=== PATIENT | female | born 1995 | race African-American/Black ===

== ENCOUNTER 2017-04-22 13:34 | Emergency (ER) | payer OTHER ==
[~2017-04-22] VITALS: Ht 154.9 cm; Wt 108.9 kg
[~2017-04-22 13:34] MED LIST: CIPROFLOXACIN500 M1 PO; DIFLUCAN150 MG PO; IBUPROFEN 600600 M1 PO; NAPROSYN500 MG PO; NOHOMEMEDICATIONS; NORCO 5-325 TA1 EACH PO; ONDANSETRON HCL4 M2 PO
== END 2017-04-22 14:36 | disposition home or self-care (01) ==
LOC: ER 13:34
DX: A56.11 Chlamydial female pelvic inflammatory disease (principal); A54.24 Gonococcal female pelvic inflammatory disease; Z90.49 Acquired absence of other specified parts of digestive tract

== ENCOUNTER 2017-04-27 14:46 | Emergency (ER) | payer OTHER ==
[~2017-04-27] VITALS: Ht 154.9 cm; Wt 108.9 kg
[2017-04-27 15:08] LABS: URINE BILIRUBIN 1+ (Negative); URINE BLOOD TRACE (Negative); URINE CLARITY CLEAR; URINE COLOR YELLOW; URINE GLUCOSE-RANDOM* NEGATIVE (Negative); URINE KETONES TRACE (Negative); URINE LEUKOCYTES NEGATIVE (Negative); URINE NITRITE NEGATIVE (Negative); URINE PROTEIN (DIPSTICK) TRACE (Negative); URINE SPECIFIC GRAVITY 1.025 (1.005-1.035); URINE UROBILINOGEN 0.2 E.U./dl (0.2-1.0)
[2017-04-27 15:11] LABS: ICTOTEST (BILI CONFIRMATORY) Negative (Negative)
== END 2017-04-27 16:18 | disposition home or self-care (01) ==
LOC: ER 14:46
PROVIDERS: Nurse Practitioner Family
DX: N76.0 Acute vaginitis (principal); Z90.49 Acquired absence of other specified parts of digestive tract

== ENCOUNTER 2017-06-01 10:17 | Emergency (ER) | payer OTHER ==
[~2017-06-01] VITALS: Ht 160 cm; Wt 86.2 kg
[2017-06-01] MEDS ORDERED: DIFLUCAN200 MG PO (10:48)
[2017-06-01] MEDS ORDERED: CLEOCIN HCL150 MG PO (10:48)
[2017-06-01] MEDS ORDERED: NAPROSYN500 MG PO (10:49)
== END 2017-06-01 11:42 | disposition home or self-care (01) ==
LOC: ER 10:17
DX: S05.91XA Unspecified injury of right eye and orbit, initial encounter (principal); W22.8XXA Striking against or struck by other objects, initial encounter; Y93.89 Activity, other specified; Y92.89 Other specified places as the place of occurrence of the external cause; Y99.8 Other external cause status

== ENCOUNTER 2017-11-02 07:20 | Emergency (ER) | payer OTHER ==
[~2017-11-02] VITALS: Ht 160 cm; Wt 116.6 kg
[~2017-11-02 07:20] MED LIST changes: +CLEOCIN HCL150 MG PO; +DIFLUCAN200 MG PO
[2017-11-02 07:50] LABS: URINE BILIRUBIN NEGATIVE (Negative); URINE BLOOD 3+ (Negative); URINE CLARITY CLOUDY; URINE COLOR RED; URINE GLUCOSE-RANDOM* NEGATIVE (Negative); URINE KETONES 1+ (Negative); URINE LEUKOCYTES-REFLEX NEGATIVE (Negative); URINE NITRITE-REFLEX NEGATIVE (Negative); URINE PROTEIN (DIPSTICK) 2+ (Negative); URINE SPECIFIC GRAVITY >= 1.030 (1.005-1.035); URINE UROBILINOGEN 0.2 E.U./dl (0.2-1.0)
[2017-11-02] MEDS ORDERED: PROBIOTIC1 EAC1 PO (07:50)
[2017-11-02 08:15] LABS: BACTERIA-REFLEX 1-9 Few /HPF (None Seen); CASTS None Seen /LPF (None Seen); CRYSTALS None Seen /LPF (None Seen); SQUAMOUS 0-3 Few /LPF (0-3); URINE RBC >20 Many /HPF (0-2); URINE WBC-REFLEX None Seen /HPF (0-5)
[2017-11-02 08:57] LABS: HEMATOCRIT 36.8 % (37.0-47.0); HEMOGLOBIN 12.3 gm/dL (12.0-15.0); MCHC 33.3 g/dL (28.0-37.0); MCV 90.1 fL (80.0-100.0); RBC 4.09 mil/uL (4.20-5.00); RDW 14.1 % (10.5-14.5); WBC 6.2 thou/uL (4.0-11.0)
[2017-11-02 09:01] LABS: CALCIUM 8.6 mg/dL (8.5-10.1); CREATININE 0.9 mg/dL (0.6-1.0); POTASSIUM 4.3 mmol/L (3.5-5.1)
[2017-11-02] MEDS ORDERED: ORTHO-NOVUM1 EAC1 PO (10:39)
[2017-11-02 10:55] VITALS: BP 135/83
== END 2017-11-02 10:55 | disposition home or self-care (01) ==
LOC: ER 07:20
PROVIDERS: Student in an Organized Health Care Education/Training Program
DX: N93.8 Other specified abnormal uterine and vaginal bleeding (principal); Z90.49 Acquired absence of other specified parts of digestive tract

== ENCOUNTER 2018-01-21 16:55 | Emergency (ER) | payer OTHER ==
[~2018-01-21] VITALS: Ht 157.5 cm; Wt 117.9 kg
[~2018-01-21 16:55] MED LIST changes: +ORTHO-NOVUM1 EAC1 PO; +PROBIOTIC1 EAC1 PO
[2018-01-21] MEDS ORDERED: VOLTAREN GEL 1100 G2 TOP (18:21)
[2018-01-21] MEDS ORDERED: CYCLOBENZAPRINE5 MG PO (18:21)
[2018-01-21 18:34] VITALS: BP 134/91
== END 2018-01-21 18:35 | disposition home or self-care (01) ==
LOC: ER 16:55
DX: S16.1XXA Strain of muscle, fascia and tendon at neck level, initial encounter (principal); S46.912A Strain of unspecified muscle, fascia and tendon at shoulder and upper arm level, left arm, initial encounter; S50.12XA Contusion of left forearm, initial encounter; Z90.49 Acquired absence of other specified parts of digestive tract; W18.2XXA Fall in (into) shower or empty bathtub, initial encounter; Y92.002 Bathroom of unspecified non-institutional (private) residence as the place of occurrence of the external cause; Y93.89 Activity, other specified; Y99.8 Other external cause status

== ENCOUNTER 2018-05-30 11:10 | Emergency (ER) | payer OTHER ==
[~2018-05-30] VITALS: Ht 157.5 cm; Wt 113.4 kg
[~2018-05-30 11:10] MED LIST changes: +CYCLOBENZAPRINE5 MG PO; +VOLTAREN GEL 1100 G2 TOP
[2018-05-30 11:37] LABS: URINE BILIRUBIN NEGATIVE (Negative); URINE BLOOD NEGATIVE (Negative); URINE CLARITY CLEAR; URINE COLOR YELLOW; URINE GLUCOSE-RANDOM* NEGATIVE (Negative); URINE KETONES 3+ (Negative); URINE LEUKOCYTES-REFLEX NEGATIVE (Negative); URINE NITRITE-REFLEX NEGATIVE (Negative); URINE PROTEIN (DIPSTICK) NEGATIVE (Negative); URINE SPECIFIC GRAVITY >= 1.030 (1.005-1.035); URINE UROBILINOGEN 0.2 E.U./dl (0.2-1.0)
[2018-05-30 11:40] LABS: URINE REDUCING SUBSTANCE NEGATIVE
[2018-05-30] MEDS ORDERED: ULTRAM 50MG TAB50 MG PO (13:41)
[2018-05-30 14:10] VITALS: BP 135/78
== END 2018-05-30 14:10 | disposition home or self-care (01) ==
LOC: ER 11:10
PROVIDERS: Physician Assistant
DX: N83.202 Unspecified ovarian cyst, left side (principal); N83.201 Unspecified ovarian cyst, right side; Z90.49 Acquired absence of other specified parts of digestive tract

== ENCOUNTER 2018-12-16 08:59 | Emergency (ER) | payer OTHER ==
[~2018-12-16] VITALS: Ht 154.9 cm; Wt 104.8 kg
[2018-12-16 08:59] VITALS: BP 132/78
[~2018-12-16 08:59] MED LIST changes: +ULTRAM 50MG TAB50 MG PO
[2018-12-16 10:24] LABS: URINE BILIRUBIN NEGATIVE (Negative); URINE BLOOD NEGATIVE (Negative); URINE COLOR YELLOW; URINE GLUCOSE-RANDOM* NEGATIVE (Negative); URINE KETONES NEGATIVE (Negative); URINE NITRITE-REFLEX NEGATIVE (Negative); URINE PROTEIN (DIPSTICK) NEGATIVE (Negative); URINE UROBILINOGEN 0.2 E.U./dl (0.2-1.0)
[2018-12-16 10:31] LABS: URINE LEUKOCYTES-REFLEX 2+ (Negative)
[2018-12-16 10:32] LABS: URINE CLARITY SL HAZY
[2018-12-16 10:46] LABS: SQUAMOUS >10 Many /LPF (0-3)
[2018-12-16 10:47] LABS: CASTS None Seen /LPF (None Seen); CRYSTALS None Seen /LPF (None Seen); URINE RBC None Seen /HPF (0-2)
[2018-12-16] MEDS ORDERED: DOXYCYCLINE 10100 MG PO (10:50)
[2018-12-16] MEDS ORDERED: NAPROSYN500 MG PO (10:50)
== END 2018-12-16 11:03 | disposition home or self-care (01) ==
LOC: ER 08:59
PROVIDERS: Emergency Medicine
DX: N73.0 Acute parametritis and pelvic cellulitis (principal); N76.2 Acute vulvitis; Z90.49 Acquired absence of other specified parts of digestive tract

== ENCOUNTER 2019-01-21 10:28 | Day surgery (SDC) | payer OTHER ==
[~2019-01-21] VITALS: Ht 154.9 cm; Wt 108.9 kg
[~2019-01-21 10:28] MED LIST changes: +DOXYCYCLINE 10100 MG PO
[2019-01-21 11:54] VITALS: BP 140/87
[2019-01-21] MEDS ORDERED: LORCET 5-325 M1 EACH PO (14:15)
[2019-01-21 14:23] VITALS: BP 140/87
--- NOTE | 2019-02-22 12:03 | O ---
[facility] [place] [address] OPERATIVE REPORT Name: NAKIA GONZALEZ Room #: DEP [facility] M..#: [id number] Admission: 01/21/19 Attend Phys: Bobby Molina MD Discharge: 01/21/19 Date of : 89 Report #: [id number] THIS REPORT FOR: //name// CC: Bobby Azevedo MD PREOPERATIVE DIAGNOSES: Left arm pain with thickening, possible retained foreign body, control palette. POSTOPERATIVE DIAGNOSES: Left upper arm pain with thickening from scar tissue. No foreign body identified. PROCEDURES PERFORMED: Excision of right upper arm scar tissue and exploration. ANESTHESIA: IV sedation, local 0.25% Marcaine. COMPLICATIONS: None. SURGEON: Bobby Molina MD. ESTIMATED BLOOD LOSS: 5 mL. PROCEDURE NOTE: With the left arm prepped and draped in sterile fashion, the patient definitely has a thickening in the skin and subcutaneous tissue adjacent to a scar. This is possible area of foreign body. This was excised in a transverse elliptical manner. Subcutaneous tissue was dissected free. This was then brought out and looked at by serial dissection through this area. The tissue contained thickened area with scar. I did not see any foreign body. The cavity was then explored. The dissection was carried down to the level of the fascia. I did not feel anything distinct to suggest foreign body that was retained just in case was under the fascia. I opened up the fascia over the muscle and evaluated the muscle and subfascial tissue and there was no abnormality identified. The fascia was closed with 4-0 Vicryl. Skin was closed with 5-0 PDS. Steri-Strips, 4 x 4's, OpSite used for dressing. The patient tolerated the procedure well. <ELECTRONICALLY SIGNED> By: Bobby Molina MD 02/22/19 1203 [id number] 1735 Bobby Molina MD /nt
== END 2019-01-21 15:00 | disposition home or self-care (01) ==
LOC: OR 10:28 → TBA 11:55 → OR 15:00
DX: M79.622 Pain in left upper arm (principal); L91.0 Hypertrophic scar; Z90.49 Acquired absence of other specified parts of digestive tract; Z98.890 Other specified postprocedural states; Z87.891 Personal history of nicotine dependence
CPT/HCPCS: 50010; 50101; 50386; 50417; 56524; 56525; 62110; 62850; 70005